=== PATIENT | male | born 1975 | race American Indian/Alaskan Native ===

== ENCOUNTER 2016-06-05 08:33 | Emergency (ER) | payer OTHER ==
[2016-06-05 09:00] VITALS: BP 135/106
--- NOTE | 2016-06-05 11:59 | Emergency Department Report ---
ED General Adult HPI - General Chief complaint: Upper Respiratory Infection Stated complaint: FLU SYMPTOMS Time Seen by Provider: 06/05/16 11:42 Source: patient Mode of arrival: Ambulatory Limitations: No Limitations - History of Present Illness Initial comments: PT c/o possible flu or allergy symptoms x 4 days. Pt states the symptoms started after working outside on Wednesday. PT states he thought the symptoms were allergies. PT states he started having post nasal drainage on Wednesday morning but by Wednesday night he was having chills and hot flashes. PT states he stayed home from work on Wed but then he had to work yesterday but could only work a few hours. PT c/o sinus pressure and pain. PT states he feels drainage going down the back of his throat and that he is coughing it up. PT has been taking otc sinus and congestion medication without relief. PT denies hx of htn. PT aware his bp will need to be rechecked. PT aware that some otc medications can raise bp. MD Complaint: sinus pressure Onset/Timin -: Gradual, days(s) Location: face Severity scale (0 -10): 5 Quality: other (pressure ) Consistency: constant Improves with: none Associated Symptoms: cough, fever/chills, headaches. denies: chest pain, malaise, nausea/vomiting Treatments Prior to Arrival: other (otc sinus medication ) - Related Data Allergies Allergy/AdvReac Type Severity Reaction Status Date / Time No Known Allergies Allergy Unverified 06/05/16 09:00 ED Review of Systems ROS: Stated complaint: FLU SYMPTOMS Other details as noted in HPI Comment: All other systems reviewed and negative Constitutional: chills, fever (subjective ) ENT: congestion. denies: ear pain, throat pain Respiratory: cough. denies: shortness of breath Cardiovascular: denies: chest pain Gastrointestinal: denies: nausea, vomiting Neurological: headache ED Past Medical Hx - Past Medical History Previous Medical History?: No Hx Hypertension: No - Surgical History Past Surgical History?: No - Social History Smoking Status: Never Smoker Substance Use Type: None ED Physical Exam - General Limitations: No Limitations General appearance: alert, in no apparent distress - Head Head exam: Present: atraumatic, normocephalic, other (+ frontal sinus tenderness blaze ) - Eye Eye exam: Present: normal appearance, PERRL, EOMI - ENT ENT exam: Present: mucous membranes moist, normal external ear exam, other ( nares- with red boggy turbinates) - Expanded ENT Exam Expanded TM/Canal exam: Effusion: Right TM, Left TM, Loss of Landmarks: Right TM, Left TM Mouth exam: Absent: drooling, trismus Throat exam: Positive: other (moderate amount of clear post nasal drainage ). Negative: tonsillomegaly, tonsillar exudate - Neck Neck exam: Present: normal inspection. Absent: tenderness - Respiratory Respiratory exam: Present: normal lung sounds bilaterally, respiratory distress. Absent: wheezes, chest wall tenderness - Cardiovascular Cardiovascular Exam: Present: regular rate, normal rhythm - Extremities Exam Extremities exam: Present: normal inspection, full ROM - Back Exam Back exam: Present: normal inspection, full ROM. Absent: tenderness - Neurological Exam Neurological exam: Present: alert, oriented X3, normal gait - Psychiatric Psychiatric exam: Present: normal affect, normal mood - Skin Skin exam: Present: warm, dry, intact, normal color ED Course Vital Signs 06/05/16 08:58 Temperature 98.6 F Pulse Rate 99 H Respiratory 16 Rate Blood Pressure 135/106 O2 Sat by Pulse 99 Oximetry - Reevaluation(s) Reevaluation #1: 06/05/16 12:03 PT aware of dx and plan of care. PT aware he will need to follow up with PCP for bp recheck. - Pulse Oximetry Interpretation Digit-Finger Initial Pulse Oximetry Readin Actions Taken: none ED Medical Decision Making - Differential Diagnosis allergic rhinitis, uri, sinusitis Critical care attestation.: If time is entered above; I have spent that time in minutes in the direct care of this critically ill patient, excluding procedure time. ED Disposition Clinical Impression: Post-nasal drainage, Elevated blood pressure (not hypertension) Sinusitis, acute Qualifiers: Sinusitis location: frontal Recurrence: non-recurrent Qualified Code(s): J01.10 - Acute frontal sinusitis, unspecified Disposition: DISCHARGED TO HOME OR SELFCARE Is pt being admited?: No Does the pt Need Aspirin: No Condition: Stable Instructions: Sinusitis (ED) Additional Instructions: OTC normal saline nasal sprays for congestion No otc decongestants Follow up with PCP in 3-5 days for bp recheck Referrals: PRIMARY CARE, [Primary Care Provider] - 3-5 Days Forms: Work/School Release Form(ED) Time of Disposition: 12:08
== END 2016-06-05 12:09 | disposition home or self-care (01) ==
LOC: ED 08:33
DX: J01.10 Acute frontal sinusitis, unspecified (principal); R03.0 Elevated blood-pressure reading, without diagnosis of hypertension
CPT/HCPCS: 99282

== ENCOUNTER 2017-04-05 07:57 | Emergency (ER) | payer OTHER ==
[2017-04-05 09:10] VITALS: BP 145/90
[2017-04-05] MEDS ORDERED: MUCINEX ER PO ONE (11:01)
[2017-04-05] MEDS ORDERED: MOTRIN PO ONE (11:01)
[2017-04-05] MEDS ORDERED: TESSALON PERLES PO ONE (11:01)
--- NOTE | 2017-04-05 11:06 | Emergency Department Report ---
Chief Complaint: Upper Respiratory Infection Stated Complaint: FLU LIKE SYMPTOMS Time Seen by Provider: 04/05/17 10:59 - HPI History of Present Illness: The patient is a 41-year-old male presents for evaluation of cold symptoms. The patient reports 5 days of cough, productive of yellow sputum, worsening for the past 1-2 days. He also reports associated nasal and chest congestion, and generalized myalgias, moderate in severity, aching in quality, exacerbated with coughing. The patient denies headache or neck stiffness, chest pain, dyspnea, syncope, hemoptysis, unilateral leg swelling, recent immobilization, history of DVT or PE. - ROS Review of Systems: Constitutional: denies: fever ENT: denies: throat or neck pain Respiratory: reports cough denies: shortness of breath Cardiovascular: denies: chest pain Endocrine: denies unexplained weight loss or gain Gastrointestinal: denies: abdominal pain, nausea Genitourinary: denies: dysuria Musculoskeletal: denies: leg swelling Skin: denies: rash Neurological: denies: headache Hematological/Lymphatic: denies: easy bleeding or easy bruising Psych: denies sadness or hopelessness - Exam Vital Signs: Vital Signs 04/05/17 09:08 Temperature 99.1 F Pulse Rate 84 Respiratory 16 Rate Blood Pressure 145/90 O2 Sat by Pulse 98 Oximetry Physical Exam: General: well-nourished, well-developed, no acute distress Head: Normocephalic, atraumatic Eyes: normal sclera ENT: Mucous membranes are pink and moist, bilateral has congestion present Neck: trachea midline, neck supple, No neck stiffness, no cervical adenopathy Respiratory: Breath sounds equal bilaterally, no wheezing, rales, or rhonchi Cardio: S1 and S2 present, no murmurs, rubs, gallops, capillary refill is brisk Musc: No pitting edema Skin: No rash Neuro: no facial drooping, normal speech MSE screening note: Focused history and physical exam performed. Due to findings the following was ordered: ED Medical Decision Making - Medical Decision Making The patient was seen and examined by myself. On initial evaluation, the patient was found to be in no distress, alert, oriented 3, cooperative, engaging, nontoxic in appearance. Evaluation orders were placed. ED Disposition for MSE Condition: Stable Referrals: PRIMARY CARE, [Primary Care Provider] - 3-5 Days
--- NOTE | 2017-04-05 11:18 | XRay Report ---
ROUTINE CHEST, TWO VIEWS: HISTORY: Dyspnea. The trachea, heart, mediastinal contour, lung palma and bony thorax are unremarkable. IMPRESSION: Unremarkable chest x-ray.
--- NOTE | 2017-04-05 11:40 | Emergency Department Report ---
- General Chief Complaint: Upper Respiratory Infection Stated Complaint: FLU LIKE SYMPTOMS Time Seen by Provider: 04/05/17 10:59 Source: patient Mode of arrival: Ambulatory Limitations: No Limitations - History of Present Illness Initial Comments: 41-year-old male past medical history none presents with complaint of approximately 5-6 days of fever or chills cough and body aches and nausea. Patient is awake alert and oriented 3 not in acute distress and nontoxic appearing. Denies taking any hmpn-eld-ixtdtgi medicines for her symptoms at home. Denies being a smoker. Possible sick contacts at work with influenza. States he has been able to tolerate by mouth fluid and food without difficulty. States he may have had diarrhea once or twice yesterday. Denies chest pain abdominal pain palpitations or any other new symptoms. MD Complaint: fever, cough, sore throat, rhinorrhea, nasal congestion Onset/Timin -: days(s) Severity: mild Consistency: intermittent Improves With: nothing Worsens With: nothing Associated Symptoms: chills, myalgias, cough Treatments Prior to Arrival: none - Related Data Previous Rx's Medication Instructions Recorded Last Taken Type Azithromycin [Zithromax] 250 mg PO DAILY #6 tablet 06/05/16 Unknown Rx Ibuprofen [Motrin] 600 mg PO Q8H PRN #15 tablet 06/05/16 Unknown Rx Benzonatate [Tessalon Perles] 100 mg PO Q8HR PRN #18 capsule 04/05/17 Unknown Rx Ibuprofen [Motrin] 800 mg PO Q8HR PRN #30 tablet 04/05/17 Unknown Rx Oseltamivir [Tamiflu] 75 mg PO BID #10 cap 04/05/17 Unknown Rx Phenylephrine/Dm/Acetaminop/GG 10 ml PO Q6H PRN #1 liquid 04/05/17 Unknown Rx [Mucinex Oktx-Avb-Dvtrkgneaz Lq] Allergies Allergy/AdvReac Type Severity Reaction Status Date / Time No Known Allergies Allergy Unverified 06/05/16 09:00 ED Review of Systems ROS: Stated complaint: FLU LIKE SYMPTOMS Other details as noted in HPI Constitutional: denies: chills, fever Eyes: denies: eye pain, eye discharge, vision change ENT: denies: ear pain, throat pain Respiratory: denies: cough, shortness of breath, wheezing Cardiovascular: denies: chest pain, palpitations Endocrine: no symptoms reported Gastrointestinal: denies: abdominal pain, nausea, diarrhea Genitourinary: denies: urgency, dysuria Musculoskeletal: denies: back pain, joint swelling, arthralgia Skin: denies: rash, lesions Neurological: denies: headache, weakness, paresthesias Psychiatric: denies: anxiety, depression Hematological/Lymphatic: denies: easy bleeding, easy bruising ED Past Medical Hx - Past Medical History Previous Medical History?: No Hx Hypertension: No - Surgical History Past Surgical History?: No - Social History Smoking Status: Never Smoker Substance Use Type: Alcohol - Medications Home Medications: Home Medications Medication Instructions Recorded Confirmed Last Taken Type Azithromycin [Zithromax] 250 mg PO DAILY #6 tablet 06/05/16 Unknown Rx Ibuprofen [Motrin] 600 mg PO Q8H PRN #15 tablet 06/05/16 Unknown Rx Benzonatate [Tessalon Perles] 100 mg PO Q8HR PRN #18 capsule 04/05/17 Unknown Rx Ibuprofen [Motrin] 800 mg PO Q8HR PRN #30 tablet 04/05/17 Unknown Rx Oseltamivir [Tamiflu] 75 mg PO BID #10 cap 04/05/17 Unknown Rx Phenylephrine/Dm/Acetaminop/GG 10 ml PO Q6H PRN #1 liquid 04/05/17 Unknown Rx [Mucinex Skji-Kav-Ncebmdwity Lq] ED Physical Exam - General Limitations: No Limitations General appearance: alert, in no apparent distress - Head Head exam: Present: atraumatic, normocephalic - Eye Eye exam: Present: normal appearance, PERRL, EOMI - ENT ENT exam: Present: mucous membranes moist - Neck Neck exam: Present: normal inspection - Respiratory Respiratory exam: Present: normal lung sounds bilaterally. Absent: respiratory distress - Cardiovascular Cardiovascular Exam: Present: regular rate, normal rhythm. Absent: systolic murmur, diastolic murmur, rubs, gallop - GI/Abdominal GI/Abdominal exam: Present: soft, normal bowel sounds - Rectal Rectal exam: Present: deferred - Extremities Exam Extremities exam: Present: normal inspection - Back Exam Back exam: Present: normal inspection - Neurological Exam Neurological exam: Present: alert, oriented X3, CN II-XII intact, normal gait - Psychiatric Psychiatric exam: Present: normal affect, normal mood - Skin Skin exam: Present: warm, dry, intact, normal color. Absent: rash ED Course Vital Signs 04/05/17 09:08 Temperature 99.1 F Pulse Rate 84 Respiratory 16 Rate Blood Pressure 145/90 O2 Sat by Pulse 98 Oximetry ED Medical Decision Making - Medical Decision Making A/P: Flulike illness, viral syndrome 1- discussed with Dr. Gibson before discharge 2-chest x-ray is unremarkable, vital signs stable before discharge. Patient tolerating by mouth fluid and food without difficulty 3-Motrin when necessary, Mucinex when necessary, Tessalon Perles when necessary. I offered patient Tamiflu. Patient expressed some interest in taking it after discussion of side effects benefits and risks of taking Tamiflu. I educated patient and provided him with literature on fluid management [email or web address] 4- I advised patient to follow up with primary care or to return to the ED for any inability to tolerate by mouth fluid or food persistent nausea and vomiting severe fevers and chills or fevers persistently above 100.4 despite antipyretic use, severe lethargy. Patient stated he understood my instructions. I advised patient to remain well-hydrated. Critical care attestation.: If time is entered above; I have spent that time in minutes in the direct care of this critically ill patient, excluding procedure time. ED Disposition Clinical Impression: Flu-like symptoms Disposition: - TO HOME OR SELFCARE Is pt being admited?: No Does the pt Need Aspirin: No Condition: Stable Instructions: Viral Syndrome (ED), Influenza (ED) Prescriptions: Benzonatate [Tessalon Perles] 100 mg PO Q8HR PRN #18 capsule PRN Reason: Cough Ibuprofen [Motrin] 800 mg PO Q8HR PRN #30 tablet PRN Reason: Fever Oseltamivir [Tamiflu] 75 mg PO BID #10 cap Phenylephrine/Dm/Acetaminop/GG [Mucinex Gkyx-Mlh-Atbsoypesq Lq] 10 ml PO Q6H PRN #1 liquid PRN Reason: Cough Referrals: [facility] [Outside] - 3-5 Days [facility] [Outside] - 3-5 Days Forms: Work/School Release Form(ED) Time of Disposition: 11:39
== END 2017-04-05 11:51 | disposition home or self-care (01) ==
LOC: ED 07:57
DX: R05 Cough (principal); R50.9 Fever, unspecified
CPT/HCPCS: 71046; 99283

== ENCOUNTER 2017-06-20 09:06 | Emergency (ER) | payer OTHER ==
[2017-06-20 09:50] VITALS: BP 132/90
[2017-06-20] MEDS ORDERED: ZOFRAN ODT PO ONE (11:25)
[2017-06-20] MEDS ORDERED: TORADOL IM ONE (11:25)
--- NOTE | 2017-06-20 11:32 | Emergency Department Report ---
ED Back Pain/Injury HPI - General Chief Complaint: Back Pain/Injury Stated Complaint: BACK PAIN Time Seen by Provider: 06/20/17 11:25 Source: patient Limitations: No Limitations - History of Present Illness Initial Comments: 41-year-old -[place] male comes in reporting that he has lower back pain. Patient presented back pain started on located in the middle to left side that radiates down his left leg to foot. Patient also complains of nausea with dry heaving. He did not take any pwrq-eth-htssrwh medication for pain. Patient denies any trauma, no fever no chills. Patient reports that the pain is sharp and intermittent and worse with bending over. 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 Patient has no past medical history currently takes no medications and has no known drug allergies. MD Complaint: back pain -: days(s) (4) Similar Symptoms Previously: No Radiation: left leg Severity: moderate Quality: sharp Consistency: intermittent Improves With: supine Worsens With: other (bending) Context: unknown Treatments Prior to Arrival: other (none) - Related Data Previous Rx's Medication Instructions Recorded Last Taken Type Azithromycin [Zithromax] 250 mg PO DAILY #6 tablet 06/05/16 Unknown Rx Ibuprofen [Motrin] 600 mg PO Q8H PRN #15 tablet 06/05/16 Unknown Rx Benzonatate [Tessalon Perles] 100 mg PO Q8HR PRN #18 capsule 04/05/17 Unknown Rx Ibuprofen [Motrin] 800 mg PO Q8HR PRN #30 tablet 04/05/17 Unknown Rx Oseltamivir [Tamiflu] 75 mg PO BID #10 cap 04/05/17 Unknown Rx Phenylephrine/Dm/Acetaminop/GG 10 ml PO Q6H PRN #1 liquid 04/05/17 Unknown Rx [Mucinex Zrzb-Vka-Ekdtbazhwh Lq] Ibuprofen [Motrin 800 MG tab] 800 mg PO Q8HR PRN #30 tablet 06/20/17 Unknown Rx Allergies Allergy/AdvReac Type Severity Reaction Status Date / Time No Known Allergies Allergy Unverified 06/05/16 09:00 ED Review of Systems ROS: Stated complaint: BACK PAIN Other details as noted in HPI Constitutional: denies: chills, fever Eyes: denies: eye pain, eye discharge, vision change ENT: denies: ear pain, throat pain Respiratory: denies: cough, shortness of breath, wheezing Cardiovascular: denies: chest pain, palpitations Endocrine: no symptoms reported Gastrointestinal: nausea, other (dry heaves). denies: abdominal pain, diarrhea Genitourinary: denies: urgency, dysuria Musculoskeletal: back pain (middle to left side with radiation to the left leg) . denies: joint swelling, arthralgia Skin: denies: rash, lesions Neurological: denies: headache, weakness, paresthesias Psychiatric: denies: anxiety, depression Hematological/Lymphatic: denies: easy bleeding, easy bruising ED Past Medical Hx - Past Medical History Hx Hypertension: No - Social History Smoking Status: Never Smoker - Medications Home Medications: Home Medications Medication Instructions Recorded Confirmed Last Taken Type Azithromycin [Zithromax] 250 mg PO DAILY #6 tablet 06/05/16 Unknown Rx Ibuprofen [Motrin] 600 mg PO Q8H PRN #15 tablet 06/05/16 Unknown Rx Benzonatate [Tessalon Perles] 100 mg PO Q8HR PRN #18 capsule 04/05/17 Unknown Rx Ibuprofen [Motrin] 800 mg PO Q8HR PRN #30 tablet 04/05/17 Unknown Rx Oseltamivir [Tamiflu] 75 mg PO BID #10 cap 04/05/17 Unknown Rx Phenylephrine/Dm/Acetaminop/GG 10 ml PO Q6H PRN #1 liquid 04/05/17 Unknown Rx [Mucinex Zjuu-Ois-Zjfrfajcod Lq] Ibuprofen [Motrin 800 MG tab] 800 mg PO Q8HR PRN #30 tablet 06/20/17 Unknown Rx ED Physical Exam - General Limitations: No Limitations General appearance: alert, in no apparent distress - Head Head exam: Present: atraumatic, normocephalic - Eye Eye exam: Present: normal appearance - ENT ENT exam: Present: mucous membranes moist - Neck Neck exam: Present: normal inspection - Respiratory Respiratory exam: Present: normal lung sounds bilaterally. Absent: respiratory distress - Cardiovascular Cardiovascular Exam: Present: regular rate, normal rhythm. Absent: systolic murmur, diastolic murmur, rubs, gallop - Back Exam Back exam: Present: full ROM, muscle spasm - Expanded Back Exam Expanded Back exam: Sciatic Notch Tenderness: Left, Positive Straight Leg Raise: Left - Neurological Exam Neurological exam: Present: alert, oriented X3 - Psychiatric Psychiatric exam: Present: normal affect, normal mood - Skin Skin exam: Present: warm, dry, intact, normal color. Absent: rash ED Course Vital Signs 06/20/17 09:46 Temperature 97.6 F Pulse Rate 85 Respiratory 16 Rate Blood Pressure 132/90 O2 Sat by Pulse 98 Oximetry - Reevaluation(s) Reevaluation #1: 06/20/17 12:28 Patient reports that he feels much better after having pain medication. ED Medical Decision Making - Medical Decision Making Patient's been evaluated by this provider fast track. I discussed the patient we'll give him some Zofran for the nausea and Toradol injection 30 mg IM. Patient denies any recent trauma with full range of motion. Discussed the patient was sent urine for urinalysis. No x-rays required. Patient verbalized understanding. Critical care attestation.: If time is entered above; I have spent that time in minutes in the direct care of this critically ill patient, excluding procedure time. ED Disposition Clinical Impression: Sciatica Qualifiers: Laterality: left Qualified Code(s): M54.32 - Sciatica, left side Disposition: DC-01 TO HOME OR SELFCARE Is pt being admited?: No Does the pt Need Aspirin: No Condition: Stable Additional Instructions: Please take pain medication as prescribed. Please do sciatica stretches for your back. Follow-up with her primary care provider if symptoms persist or gets worse. Prescriptions: Ibuprofen [Motrin 800 MG tab] 800 mg PO Q8HR PRN #30 tablet PRN Reason: Pain Referrals: PRIMARY CARE, [Primary Care Provider] - 3-5 Days [facility] [Provider Group] - 3-5 Days Forms: Work/School Release Form(ED)
[2017-06-20 11:45] LABS: Bilirubin,Urine NEG (Negative); Blood,Urine NEG (Negative); Color,Urine Straw (Yellow); Protein,Urine <15 mg/dL mg/dL (Negative); Urobilinogen,Urine < 2.0 mg/dL (<2.0); WBC,Urine < 1.0 /HPF (0.0-6.0)
== END 2017-06-20 12:41 | disposition home or self-care (01) ==
LOC: ED 09:06
DX: M54.32 Sciatica, left side (principal)
CPT/HCPCS: 81001; 96372; 99283; J1885; Q0162